=== PATIENT | male | born 2000 | race Caucasian/White ===

== ENCOUNTER 2022-10-28 12:41 | Emergency (ER) | payer BC, OTHER, SELFPAY ==
--- NOTE | ~2022-10-28 | CT_ITS ---
EXAMINATION: CT abdomen pelvis w con INDICATION: Abdominal pain TECHNIQUE: Computed tomographic images of the abdomen and pelvis were obtained after the administrati on of 100 cc of Omnipaque 350 intravenous contrast. The dose-length product (DLP) was 1634.03 mGy-cm. Automated exposure control and iterative reconstruction technique were employed. COMPARISON: None available FINDINGS: The lung bases are clear. The heart size is normal. The liver is diffusely low in attenuati on when compared with the spleen, consistent with hepatic steatosis. The spleen, pancreas, gallbladde r, and adrenal glands are normal. The kidneys are normal. Wesley No pathologically enlarged abdominal or pelvic lymph nodes are identified. No free intraperitoneal gas or evidence of bowel obstruction. There is an increase in number of nonpathologically enlarged mesenteric lymph nodes, likely reactive. IMPRESSION: 1. Diffuse hepatic steatosis. 2. Increase in number of nonpathologically enlarged mesenteric lymph nodes, likely reactive. Reviewed, dictated and finalized at location L. CARE PROVIDER IMPRESSION: 1. Diffuse hepatic steatosis. 2. Increase in number of nonpathologically enlarged mesenteric lymph nodes, lik augustine reactive.
[2022-10-28 12:45] VITALS: BP 113/74; PULSE 98; RESP 14; TEMP 36.6; O2SAT 99
[2022-10-28 13:11] LABS: Basophils Percent Auto 0.4 % (0.2-1.2); Eosinophils Absolute Auto 0.1 K/mm3 (0-0.3); Eosinophils Percent Auto 1.9 % (0-4.4); Immature Granulocyte Absolute 0.03 K/mm3 (0.00-0.031); Immature Granulocyte Percent A 0.4 % (0-0.5); Lymphocytes Absolute Auto 1.91 K/mm3 (0.9-3.2); Lymphocytes Percent Auto 28.6 % (18.3-44.2); Mean Corpuscular Hemoglobin 28.7 pg (26-34); Mean Corpuscular Volume 84.4 fl (80-100); Mean Platelet Volume 9.5 fl (7.4-10.4); Monocytes Absolute Auto 0.9 K/mm3 (0.1-0.6); Monocytes Percent Auto 13.2 % (2.6-8.5); Neutrophils Absolute Auto 3.7 K/mm3 (1.3-6.7); Neutrophils Percent Auto 55.5 % (45.5-73.1); Platelet Count Result 266 k/mm3 (150-375); Red Blood Count 5.57 M/mm3 (4.6-6.20); Red Cell Distribution Width 13.2 % (11.5-14.5); White Blood Count 6.7 K/mm3 (4.5-10.0)
[2022-10-28 13:26] LABS: Alanine Aminotransferase 51 U/L (6-50); Albumin Level 4.5 g/dL (3.5-5.1); Alkaline Phosphatase 69 U/L (38-126); Anion Gap 6 mmol/L (8-16); Aspartate Amino Transferase 51 U/L (17-59); Blood Urea Nitrogen 14 mg/dL (9-20); Calcium 8.7 mg/dL (8.4-10.2); Carbon Dioxide 29 mmol/L (22-30); Chloride 100 mmol/L (98-107); Estimated CRCL calculation 181 ml/min; Estimated Glomerular Filt Rate > 60; Glucose 105 mg/dL (65-110); Lipase 56 U/L (23-300); Potassium 3.6 mmol/L (3.4-5.0); Sodium 135 mmol/L (137-145)
--- NOTE | 2022-10-28 13:45 | ED.GENADULT ---
HPI - General Adult General Chief complaint: Nausea/Vomiting/Diarrhea Stated complaint: diarrhea Time Seen by Provider: 10/28/22 13:20 Source: RN notes reviewed History of Present Illness HPI narrative: Patient presents emergency department from urgent care for abdominal pain. Patient states abdominal pain began approximately 5 days ago. The pain is located just above his umbilicus into his epigastric region pain is described as aching and cramping in nature states has been associated with numerous episodes of diarrhea. Denies having any fevers or chills he denies any chest pain shortness of breath nausea vomiting or any other symptoms. States he did not take anything for the symptoms today gone to urgent care today and was referred to the ER for further evaluation Related Data Allergies Allergy/AdvReac Type Severity Reaction Status Date / Time amoxicillin Allergy Mild Hives Verified 10/28/22 13:24 Sulfa (Sulfonamide Allergy Mild Hives Verified 10/28/22 13:24 Antibiotics) Review of Systems Review of Systems: Gen.: Denies fevers or chills ENT: Denies congestion Respiratory: Denies shortness of breath or cough CV: Denies chest pain or palpitations GI: See HPI Musculoskeletal: Denies back pain or muscle pain Neuro: Denies numbness, tingling, weakness or focal weakness Skin: Denies rash Except as documented, all other systems reviewed and negative [facility] Past Medical History Medical History (Updated 10/28/22 @ 16:09 by Dominic Mas DO) Patient denies significant medical history Social History Social History (Updated 10/28/22 @ 13:46 by Dominic Mas DO) Smoking status: Never smoker Exam Narrative: APPEARANCE: No acute distress, nontoxic, resting in bed HEENT: Normocephalic, atraumatic, OMM RESPIRATORY: No respiratory distress, clear to auscultation bilaterally with no rhonchi wheezing or rales CARDIOVASCULAR: RRR s murmur ABDOMINAL: Soft nondistended tender palpation epigastric and right upper quadrant and left upper quadrant no tenderness in the right lower quadrant in the left lower quadrant no rebound or MUSCULOSKELETAl: Moves all extremities. No clubbing, cyanosis or edema. NEURO: Awake and alert. Following commands, speech normal, no focal deficits SKIN:: Warm, dry. Normal Color PSYCHIATRIC: Normal affect/mood Course Course Emergency Course: Patient states that they are feeling much better at this time. States abdominal pain has resolv improved. Repeat abdominal exam shows the patient's abdomen to be soft With no surgical abdomen present. Discussed with patient results of workup and diagnosis. Discussed need for follow-up with primary care physician, reasons to return to the emergency department in proper use of medication. Patient understands and agrees to current treatment plan. Discussed with patient plan for referral to GI Vital Signs Vital signs: Vital Signs Temperature 97.8 F 10/28/22 12:45 Pulse Rate 98 10/28/22 12:45 Respiratory Rate 14 10/28/22 12:45 Blood Pressure 113/74 10/28/22 12:45 Pulse Oximetry 99 10/28/22 12:45 Temperature 97.8 F 10/28/22 12:45 Pulse Rate 98 10/28/22 12:45 Respiratory Rate 14 10/28/22 12:45 Blood Pressure 113/74 10/28/22 12:45 Pulse Oximetry 99 10/28/22 12:45 Medical Decision Making MDM Narrative Medical decision making narrative: Patient's abdomen is soft without significant pain or signs of surgical abdomen on serial exams. Lab and x-ray evaluations are reviewed and patient is felt to be a reasonable candidate for outpatient management. Patient was instructed as to limitations of x-ray and laboratory evaluation and encouraged to return to ED or primary physician for repeat exam in 12 hours if continued or worsening pain Vital Signs Vital Signs: Vital Signs Temperature 97.8 F 10/28/22 12:45 Pulse Rate 98 10/28/22 12:45 Respiratory Rate 14 10/28/22 12:45 Blood Pressure 113/74 10/28/22 12:45 Pulse
[2022-10-28] MEDS: KETOROLAC 30 MG/ML VIAL (*BKC) IV PUSH (14:30)
[2022-10-28] MEDS: SODIUM CHLORIDE 0.9% IV 1,000 ML 999 ML IV CONT (14:31)
[2022-10-28 14:51] LABS: Appearance Urine Clear (Clear); Bilirubin Urine 1+ (Negative); Blood Urine Negative (Negative); Color Urine Yellow (Yellow); Glucose Urine UA Negative (Negative); Ketones Urine Trace mg/dL (Negative); Leukocyte Esterase Ur Negative LEU/UL (Negative); Nitrate Urine Negative (Negative); Protein Urine 3+ mg/dL (Negative); Specific Grav Ur >= 1.030 (1.001-1.035); Urobilinogen Urine 0.2 mg/dL (<2.0)
[2022-10-28 14:56] LABS: Mucus Urine Rare /lpf; RBC Urine 0-2 /hpf (0-2); WBC Urine 0-3 /hpf
[2022-10-28 14:57] LABS: Add Urine Microscopic? YES
== END 2022-10-28 16:24 | disposition home or self-care (01) ==
PROVIDERS: Emergency Medicine; Emergency Provider Emergency Medicine
DX: R19.7 Diarrhea, unspecified (principal); R10.13 Epigastric pain; K76.0 Fatty (change of) liver, not elsewhere classified
CPT/HCPCS: 36415; 74177; 80053; 81001; 83690; 85025; 87045; 87427; 96361; 96374; 99284; J1885; J7030; Q9967

== ENCOUNTER 2022-12-29 17:02 | Emergency (ER) | payer BC, OTHER, SELFPAY ==
--- NOTE | ~2022-12-29 | XR_ITS ---
EXAM: XR lumbar spine 2-3V DATE: 12/29/2022 20:02 HISTORY: fall, back pain TO LOWER BACK . COMPARISON: CT abdomen and pelvis 10/28/2022. FINDINGS: 5 nonrib-bearing lumbar-type vertebral bodies. Pedicles intact. Stable minimal 2 mm retrol isthesis at L5-S1, otherwise normal vertebral body alignment. Vertebral body heights preserved. Disc spaces maintained. Normal facets and posterior elements. No fracture or dislocation. IMPRESSION: No fracture or traumatic malalignment detected in the lumbar spine. Reviewed, dictated and finalized at location K.
--- NOTE | ~2022-12-29 | CT_ITS ---
EXAMINATION: CT lumbar spine wo con DATE: 12/29/2022 20:30 INDICATION: low back pain unable to walk . TECHNIQUE: Computed tomography (CT) of the lumbar spine was performed without intravenous contrast. A utomated exposure control and iterative reconstruction technique were employed. The dose-length produ ct was 1577.76 mGy-cm. COMPARISON: X-ray lumbar spine, same date; CT abdomen pelvis 10/28/2022. FINDINGS: 5 nonrib-bearing lumbar-type vertebral bodies. Pedicles intact. Minimal stable retrolisthes is at L5-S1, otherwise normal vertebral body alignment. Vertebral body heights preserved. Disc spaces maintained. Normal facets and posterior elements. No significant central canal or neural foraminal n arrowing IMPRESSION: No acute fracture or traumatic malalignment in the lumbar spine. Reviewed, dictated and finalized at location K.
--- NOTE | ~2022-12-29 | CT_ITS ---
EXAMINATION: CT pelvis wo con DATE: 12/29/2022 20:32 INDICATION: Pain, unable to walk after fall. TECHNIQUE: Computed tomography (CT) of the pelvis was performed without intravenous contrast. Automat ed exposure control and iterative reconstruction technique were employed. The dose-length product was 1098.53 mGy-cm. COMPARISON: None FINDINGS: The visualized bones are normal. Joint spaces are maintained. Very small fat-containing unc omplicated appearing umbilical hernia. No significant intrapelvic abnormality. Regional soft tissues are normal. IMPRESSION: No acute osseous finding in the pelvis. Reviewed, dictated and finalized at location K.
[2022-12-29 17:20] VITALS: BP 123/67; PULSE 98; RESP 18; TEMP 36.7; O2SAT 99
--- NOTE | 2022-12-29 20:20 | ED.FALL ---
HPI - Fall General Chief Complaint: Fall Stated Complaint: fall Time Seen by Provider: 12/29/22 19:49 Source: patient Mode of arrival: wheelchair Limitations: no limitations History of Present Illness HPI Narrative: THis is a 22 year old male who presents for evaluation of low back pain. Patient states that around 11 am today he accidentally fell on the stairs. He states he was running and he hit his lower back/tail bone on edge of the step. He states he has been unable to walk since this fall. He states he does not have pain at rest when laying down. His pain intensifies with standing up straight . He states when he tries to bear weight he falls. He also reports tingling to his left thigh. He took 800 mg ibuprofen 8 hours ago. He denies any urinary symptoms or saddle anesthesia. Related Data Allergies Allergy/AdvReac Type Severity Reaction Status Date / Time amoxicillin Allergy Mild Hives Verified 10/28/22 13:24 Sulfa (Sulfonamide Allergy Mild Hives Verified 10/28/22 13:24 Antibiotics) Review of Systems Review of Systems: All systems reviewed & are unremarkable except as noted in HPI and below PMFSH Past Medical History Medical History Patient denies significant medical history Social History Social History Smoking status: Never smoker Exam Const: General: no acute distress and alert Nutritional Appearance: obese morbidly obese Orientation/consciousness: patient oriented x3 HENMT: Head: normal to inspection Face and sinus: normal facial exam Eyes: EOM: EOMs intact bilaterally Resp: Effort & Inspection: normal respiratory effort GI: GI Palp: Yes Soft to palpation, No Tenderness to palpation present (GI), No Guarding due to palpation present (GI) and No Rigid due to palpation Auscultation: normal bowel sounds Back/Spine/Pelvis: Back: no CVA tenderness Thoracic/Lumbar Spine: lumbar spinal tenderness Skin: General skin exam: normal color Rashes: no rashes Wounds: no wounds Neuro: General: patient oriented x3, moves all extremities, no focal motor deficits and CN's II-XI intact bilaterally Speech: normal speech Extrem: General: normal to inspection and no pedal edema Psych: Mental Status: mental status grossly normal Affect: normal affect Attitude: cooperative Course Reevaluation(s) Reevaluation #1: I discussed with patient no acute fracture and spinal canal stenosis seen. PAtient is no acute distress. He is able to move around and sit up in bed without distress. I Discussed discharge plan. Date: 12/29/22 Time: 21:21 Vital Signs Vital signs: Vital Signs Temperature 98.0 F 12/29/22 17:20 Pulse Rate 98 12/29/22 17:20 Respiratory Rate 18 12/29/22 17:20 Blood Pressure 123/67 12/29/22 17:20 Pulse Oximetry 99 12/29/22 17:20 Oxygen Delivery Room Air 12/29/22 17:20 Temperature 98.0 F 12/29/22 17:20 Pulse Rate 98 12/29/22 17:20 Respiratory Rate 18 12/29/22 17:20 Blood Pressure 123/67 12/29/22 17:20 Pulse Oximetry 99 12/29/22 17:20 Oxygen Delivery Room Air 12/29/22 17:20 MDM - Fall Imaging Data Radiologist's impression: ITS Impressions Lumbar Spine X-Ray 12/29/22 20:22 IMPRESSION: No fracture or traumatic malalignment detected in the lumbar spine. Lumbar Spine CT 12/29/22 21:02 IMPRESSION: No acute fracture or traumatic malalignment in the lumbar spine. Pelvis CT 12/29/22 21:04 IMPRESSION: No acute osseous finding in the pelvis. Discharge Plan Discharge Clinical Impression: Acute back pain Patient Disposition: Home, Self-Care Condition: Stable Instructions: Antibiotic Form, Acute Low Back Pain (ED), Contusion in Adults (ED) Additional Instructions: Today you were evaluated for back pain. You can try over the counter muscle pain cream or heating pad. Follow up with your primary ca
[2022-12-29] MEDS: ONDANSETRON HCL ODT 4 MG TABLET PO (20:36)
[2022-12-29] MEDS: oxyCODONE/ACETAMINOPHEN (*CRX) 5-325 MG TABLET 1 TABLET PO (20:37)
[2022-12-29] MEDS: KETOROLAC (*BKC) 60 MG/2 ML VIAL IM (20:37)
== END 2022-12-29 21:30 | disposition home or self-care (01) ==
PROVIDERS: Emergency Provider General Practice
DX: S39.92XA Unspecified injury of lower back, initial encounter (principal); W10.9XXA Fall (on) (from) unspecified stairs and steps, initial encounter
CPT/HCPCS: 72100; 72131; 72192; 96372; 99284; A9270; J1885

== ENCOUNTER → 2023-08-03 15:51 | Outpatient (CLI) | payer BC, OTHER, SELFPAY ==
--- NOTE | ~2023-08-03 | US_ITS ---
EXAMINATION: US right upper quadrant DATE: 08/03/2023 16:11 INDICATION: Right upper quadrant abdominal pain. Nausea. TECHNIQUE: Multiple grayscale and Doppler ultrasound images of the abdomen were obtained. COMPARISON: CT abdomen and pelvis 10/28/2022 FINDINGS: The visualized portions of the head, body, and tail of the pancreas are normal. There is di ffuse hepatic steatosis. There is normal flow in main portal vein. The gallbladder is normal in size. No gallstones or gallbladder wall thickening. There is no sonographic Leone sign. The common duct i s normal and measures 6 mm. IMPRESSION: 1. Diffuse hepatic steatosis. Reviewed, dictated and finalized at location A. [employer]MER LOAN OFFICER
== END ==
PROVIDERS: PCP Nurse Practitioner; Visit Provider Nurse Practitioner
DX: R10.9 Unspecified abdominal pain (principal); K76.0 Fatty (change of) liver, not elsewhere classified
CPT/HCPCS: 76705